=== PATIENT | male | born 1955 | race Caucasian/White ===

== ENCOUNTER → 2023-04-11 08:30 | Outpatient (CLI) | payer OTHER, SELFPAY ==
[2023-04-11 09:16] LABS: Add Manual Diff / Slide Review NO; Basophils Absolute Auto 100 /uL (0-100); Basophils Percent Auto 0.8 % (0-2); Eosinophils Absolute Auto 400 /uL (0-450); Eosinophils Percent Auto 4.7 % (2-4); Hemoglobin 13.8 g/dL (13.5-17.5); Lymphocytes Absolute Auto 1800 /uL (1100-4500); Lymphocytes Percent Auto 21.9 % (25-40); Mean Corpuscular HGB Conc 35.4 % (30-36); Mean Corpuscular Hemoglobin 30.5 PG (26-34); Mean Corpuscular Volume 86.2 fL (80-100); Monocytes Absolute Auto 600 /uL (0-900); Monocytes Percent Auto 7.2 % (3-14); Neutrophils Absolute Auto 5300 /uL (1500-7000); Neutrophils Percent Auto 65.4 % (50-75); Platelet Count 268 X10^3/uL (150-400); Red Blood Cell Count 4.53 X10^6/uL (4.5-5.9); Red Cell Distribution Width 13.2 % (11.6-14.8); White Blood Cell Count 8.2 X10^3/uL (4.5-11.0)
[2023-04-11 09:53] LABS: Alanine Aminotransferase 29 IU/L (<50); Albumin Globulin Ratio 1.4 (1.0-2.8); Alkaline Phosphatase 80 U/L (38-126); Aspartate Aminotransferase 27 IU/L (17-59); BUN Creatinine Ratio 16.8 (6-22); Bilirubin Total 0.6 mg/dL (0.2-1.3); Blood Urea Nitrogen 17 mg/dL (9-20); Carbon Dioxide 27 mmol/L (22-32); Chloride 104 mmol/L (98-107); Cholesterol 196 mg/dL (140-199); Estimated Glomerular Filt Rate > 60 mL/min (>60); Globulin 2.8 g/dL (1.7-4.1); Glucose 101 mg/dL (80-110); HDL Cholesterol 53 mg/dL (40-60); HEMOLYSIS < 15 (0-50); LDL Cholesterol Calculated 97 mg/dL (<100); Potassium 4.3 mmol/L (3.4-5.1); Sodium 138 mmol/L (137-145); Total Protein 6.8 g/dL (6.3-8.2); Triglycerides 229 mg/dL (35-150)
[2023-04-11 10:23] LABS: Prostate Specific Antigen Scrn 0.324 ng/mL (0.1-4.0)
== END ==
PROVIDERS: PCP Family Medicine; Referring Provider Family Medicine; Visit Provider Family Medicine
DX: I10 Essential (primary) hypertension (principal); Z12.5 Encounter for screening for malignant neoplasm of prostate; R30.0 Dysuria; R53.83 Other fatigue; Z13.220 Encounter for screening for lipoid disorders; Z13.29 Encounter for screening for other suspected endocrine disorder
CPT/HCPCS: 36415; 80053; 80061; 84443; 85025; G0103

== ENCOUNTER → 2023-04-15 09:47 | Outpatient (CLI) | payer OTHER, SELFPAY ==
[2023-04-15 10:15] LABS: Appearance Urine UA CLEAR; Bilirubin Urine UA NEGATIVE (NEGATIVE); Color Urine UA YELLOW; Glucose Urine UA NEGATIVE (Negative); Ketones Urine UA NEGATIVE (NEGATIVE); Leukocyte Esterase Urine UA NEGATIVE (NEGATIVE); Nitrite Urine UA NEGATIVE (Negative); Occult Blood Urine UA NEGATIVE (Negative); Protein Urine UA NEGATIVE (Negative); Specific Gravity Urine UA 1.025 (1.000-1.035); Urobilinogen Urine UA 0.2 E.U./dL (0.2); pH Urine UA 5.5 (4.5-8.0)
[2023-04-15 10:22] LABS: Bacteria Urine None Seen; Culture Indicated Urine Cult Not Indicated; RBC Urine None Seen (0-5/HPF); Squamous Epithelial Cell Urine None Seen (0-5/HPF); WBC Urine None Seen (0-5/HPF)
[2023-04-15 10:44] LABS: Creatinine Urine Random 139.4 mg/dL
[2023-04-15 10:48] LABS: Microalbumin Urine Random < 0.6 mg/dL (0-1.6)
[2023-04-16 17:30] LABS: Fecal Immunochemical Test Negative (Negative)
== END ==
PROVIDERS: PCP Family Medicine; Referring Provider Family Medicine; Visit Provider Family Medicine
DX: I10 Essential (primary) hypertension (principal); R30.0 Dysuria; R53.83 Other fatigue; Z13.220 Encounter for screening for lipoid disorders; Z13.29 Encounter for screening for other suspected endocrine disorder; Z12.11 Encounter for screening for malignant neoplasm of colon
CPT/HCPCS: 81001; 82043; 82274; 82570

== ENCOUNTER → 2024-04-07 09:48 | Outpatient (CLI) | payer OTHER, SELFPAY ==
[2024-04-07 10:52] LABS: BUN Creatinine Ratio 17.5 (6-22); Blood Urea Nitrogen 18 mg/dL (9-20); Calcium 9.2 mg/dL (8.4-10.2); Carbon Dioxide 27 mmol/L (22-32); Chloride 107 mmol/L (98-107); Cholesterol 164 mg/dL (140-199); Estimated Glomerular Filt Rate > 60 mL/min (>60); Glucose 97 mg/dL (80-110); HDL Cholesterol 49 mg/dL (40-60); HEMOLYSIS < 15 (0-50); LDL Cholesterol Calculated 89 mg/dL (<100); Potassium 4.5 mmol/L (3.4-5.1); Sodium 140 mmol/L (137-145); Triglycerides 129 mg/dL (35-150)
[2024-04-07 10:56] LABS: High Sensitivity CRP - Cardiac 1.3 mg/L (1.0-3.0)
== END ==
PROVIDERS: PCP Family Medicine; Referring Provider Family Medicine; Visit Provider Family Medicine
DX: E78.1 Pure hyperglyceridemia (principal); I10 Essential (primary) hypertension; R89.9 Unspecified abnormal finding in specimens from other organs, systems and tissues
CPT/HCPCS: 36415; 80048; 80061; 86140

== ENCOUNTER → 2024-04-29 16:30 | Outpatient (CLI) | payer OTHER, SELFPAY ==
--- NOTE | 2024-04-29 16:32 | DI.RAD.S_ITS ---
PROCEDURE: XR HAND RT MIN 3V INDICATIONS: Right hand, pinky injury TECHNIQUE: 4 views of the hand(s) acquired. COMPARISON: None. FINDINGS: Bones: There is a comminuted 5th middle phalangeal fracture with mild displacement. There is intra-articular involvement at the 5th proximal interphalangeal joint. In addition, there is comminuted spiral fracture of the 4th metacarpal shaft neck and head with minimal displacement. There is intra-articular involvement. Carpal bones are normally aligned. No suspicious bony lesions. Soft tissues: No suspicious soft tissue calcifications. IMPRESSION: 1. Comminuted 5th middle phalangeal fracture. 2. Comminuted 4th metacarpal fracture. Dictated by: Brad Bernabe M.D. on 04/29/2024 at 17:59 Approved by: Brad Bernabe M.D. on 04/29/2024 at 18:01
== END ==
PROVIDERS: PCP Family Medicine; Referring Provider Physician Assistant Surgical; Visit Provider Physician Assistant Surgical
DX: S62.626A Displaced fracture of middle phalanx of right little finger, initial encounter for closed fracture (principal); S62.354A Nondisplaced fracture of shaft of fourth metacarpal bone, right hand, initial encounter for closed fracture; X58.XXXA Exposure to other specified factors, initial encounter
CPT/HCPCS: 73130

== ENCOUNTER → 2024-09-04 09:21 | Outpatient (CLI) | payer OTHER, SELFPAY ==
--- NOTE | 2024-09-04 09:23 | DI.MRI.S_ITS ---
PROCEDURE: MR HEAD/BRAIN WO/W CON INDICATIONS: LOCAL RECURRENCE OF MALIGNANT MELANOMA SKIN TECHNIQUE: Noncontrast axial T1 spin echo, axial T2 fast spin echo, sagittal and axial FLAIR, coronal T2 fast spin echo, axial gradient echo, axial diffusion and ADC through the brain. After the administration of contrast, axial and coronal and sagittal 3D VIBE or T1 spin echo with fat saturation through the brain. COMPARISON: None. FINDINGS: Image quality: Excellent. CSF Spaces: Basal cisterns are patent. No extra-axial fluid collections. Ventricles are normal in size and shape. Brain: No midline shift. No intracranial bleeds or masses. Linear enhancement is present within the superior left cerebellum. The brainstem appears normal. Diffusion-weighted images demonstrate no acute infarct. No chronic ischemic insults. Normal intravascular flow voids are present. Minimal periventricular and subcortical white matter hyperintensities are present. Skull and face: Calvarial marrow is normal in signal. Orbits appear normal. Sinuses: Sinuses and mastoids appear clear. IMPRESSION: Linear enhancement within the left superior cerebellum. This appears to be vascular nature and possibly related to a incidental deep venous anomaly. No priors are available for comparison. No definitive appearance of enhancement or abnormal signal to suggest metastatic disease. Dictated by: Carolyn Crisostoom M.D. on 09/05/2024 at 14:37 Approved by: Carolyn Crisostomo M.D. on 09/05/2024 at 14:39
== END ==
PROVIDERS: PCP Family Medicine; Referring Provider Surgery; Visit Provider Surgery
DX: C43.9 Malignant melanoma of skin, unspecified (principal)
CPT/HCPCS: 70553; A9579

== ENCOUNTER 2025-01-12 12:55 | Day surgery (SDC) | payer OTHER, SELFPAY ==
--- NOTE | 2025-01-12 | PATH_ITS ---
[facility] Accession Number: [id number] No. of containers..02 Tissue . 01 Material submitted: . PART A: stomach - ANTRAL PART B: esophagus, E-G Junction - GE JUNCTION . 01 Diagnosis: Part A: ANTRAL : Gastric antral mucosa with no diagnostic alterations. No Helicobacter organisms identified on H/E stain. No intestinal metaplasia, dysplasia, or malignancy identified. . Part B: GE JUNCTION: Squamous mucosa with mild reactive changes suggestive of reflux. Eosinophils are not increased. [facility] 01/15/2025 1737 Local . 01 Electronically signed: . Peter Butler MD, Pathologist NPI- [id number] . 01 Gross description: . Part A: ANTRAL : Received in formalin are 2 fragment(s) of norwood, soft tissue measuring 0.2 x 0.2 x 0.2 cm to 0.3 x 0.3 x 0.3 cm submitted entirely in 1 cassette(s) . Part B: GE JUNCTION: Received in formalin are 2 fragment(s) of norwood, soft tissue measuring 0.2 x 0.2 x 0.2 cm to 0.3 x 0.3 x 0.3 cm submitted entirely in 1 cassette(s) /ANDRES 01/15/2025 1737 Local . 01 Pathologist provided ICD-10: K21.00 . 01 CPT . 592055, 202604 Specimen Comment: A courtesy copy of this report has been sent to [facility] Pathology Performed at: [address] [id number] MD Peter Butler MD Phone: [phone]
[2025-01-12] MEDS: LACTATED RINGERS 1,000 ML 42 ML IV (13:38)
[2025-01-12 13:47] VITALS: BP 159/83; PULSE 83; RESP 14; TEMP 36.3; O2SAT 100
--- NOTE | 2025-01-12 14:08 | PM.HP.IH.1 ---
History of Present Illness History of Present Illness Date Patient Seen: 01/12/25 Time Patient Seen: 14:08 Chief complaint: SDC Narrative: 69-year-old white male has a history of melanoma who gets PET scans and follow-up, which showed elevated SUV at the GE junction. He is also due for colon screening. [facility] Medical History (Updated 01/12/25 @ 14:09 by Koby Alva MD) Colon cancer screening Gastrointestinal tract imaging abnormality Melanoma Hypertension Wears glasses Plantar warts (~1967) Mihir Benson virus infection (~1995) Shingles (~1999) Chicken pox Hearing loss (~2006) Prehypertension (~2006) Melanoma (~2011) Family History Father Hearing loss Mother Hearing loss Sister Hearing loss Grandfather Stroke Grandmother Stroke Grandmother Stroke Social History Smoking Status: Never smoker alcohol intake: current Meds Home Medications and Allergies Home Medications Medication Instructions Recorded Confirmed Type losartan 25 mg tablet (Cozaar) 12.5 mg (1/2 x 25 mg) PO DAILY to 04/06/24 01/12/25 Rx lower blood pressure #90 tabs peg 3350-electrolytes 236 240 ml PO Q10M #4,000 mL 12/20/24 Rx gram-22.74 gram-6.74 gram-5.86 gram solution (Golytely) Allergies Allergy/AdvReac Type Severity Reaction Status Date / Time BIBI Inhibitors Allergy Intermediate Cough Verified 04/29/24 15:45 Review of Systems Review of Systems ROS: Yes All systems reviewed with the patient and are negative except as otherwise documented Exam Vital Signs (past 8 hours): - 01/12/25 13:47 Temperature 97.4 F L Pulse Rate 83 Respiratory Rate 14 Blood Pressure 159/83 H Pulse Oximetry 100 Oxygen Delivery Method Room Air Oxygen Delivery Method Room Air Assessment & Plan Assessment and plan (1) Gastrointestinal tract imaging abnormality: Status: Acute (2) Colon cancer screening: Status: Acute Assessment & Plan narrative: Patient presents for EGD and colonoscopy Risks, benefits, alternatives to EGD and colonoscopy explained, including but not limited to esophageal, gastric or bowel perforation or other serious complication requiring surgery at less than 1 in 5000 EGDs and colonoscopies, abdominal pain, cramping or bleeding and less than 1% of colonoscopies, and the chances that we find a diagnosis that would require further intervention of about 2%. Patient agrees to proceed. Time-Based Coding :: [TOTAL MINUTES] spent with patient and on the chart (including review of chart, obtaining history, exam, reviewing outside data, placing orders, documenting exam and treatment plan, and counseling patient) on [DATE]. [employer] Sales Professional Bilingual Document charge(s): No
--- NOTE | 2025-01-12 14:23 | SUR.OPER ---
[address] [facility]
--- NOTE | 2025-01-12 14:31 | PM.OP.EC ---
Operative Date/Time/Diagnoses Date of procedure: 01/12/25 Time of procedure: 14:31 Pre-op diagnosis: Abnormal PET scan of the GE junction, colon screening Post-op diagnosis: same (Gastritis, esophageal ring, prolapsed internal hemorrhoid) Procedure & Clinicians Study performed: 1. EGD with biopsy 2. Colonoscopy Same procedure as scheduled: Yes Indications: Abnormal PET scan, colon screening Surgeon: Koby Alva Procedure Notes SCOAP/Timeout: Performed Procedure in detail: Time-out was performed. Mac was induced. Patient was placed in left lateral decubitus position. Bite block was placed. Gastroscope was inserted through the bite block into the 2nd portion of the duodenal. Of the duodenal appeared normal. Had mild antral gastritis. Forceps biopsies were obtained. Retroflexed view showed a small, 3 cm hiatal hernia with a distal esophageal ring. Biopsies were taken of the GE junction of the distal esophageal ring that was noted proximally 40 cm from the incisors. The remainder of the esophagus was normal, no masses or concerning lesions. The gastroscope was removed and attention was turned to the colonoscopy. The perineum was inspected without any gross abnormality. Lubricated pediatric colonoscope was inserted and advanced to the cecum. The terminal ileum was intubated. The colonoscope was withdrawn slowly inspecting the circumference of the colon. Very small polyps may have been missed, prep quality was adequate. Retroflexed view of the rectum showed small, non prolapsed nonbleeding internal hemorrhoids. The scope was withdrawn the patient was taken to PACU in good condition. Scope withdrawal time: 6 Sedation minutes: 15 Findings: gastritis (3 cm esophageal ring at the GE junction) and internal hemorrhoids (Prolapsed, nonbleeding grade 4 internal hemorrhoids) Specimen(s): other (1. Antral biopsy 2. GE junction biopsy) Post-procedure Recommendations: Colonscopy in 10 years and Start medication(s) (esomeprazole) Follow up: as needed Disposition: PACU
[2025-01-12 14:33] VITALS: BP 117/84; PULSE 88; RESP 17; TEMP 36.3; O2SAT 92
[2025-01-12 14:39] VITALS: BP 104/75; PULSE 89; RESP 18; O2SAT 99
[2025-01-12 14:43] VITALS: BP 136/80; PULSE 83; RESP 12; TEMP 36.3; O2SAT 99
[2025-01-12 14:49] VITALS: BP 139/90; PULSE 82; RESP 14; O2SAT 99
== END 2025-01-12 15:06 | disposition home or self-care (01) ==
PROVIDERS: PCP Family Medicine; Referring Provider Surgery; Visit Provider Surgery
PROC: 0DJ08ZZ Inspection of Upper Intestinal Tract, Via Natural or Artificial Opening Endoscopic (ICD-10-PCS; CPT 43239; principal; 2025-01-12 14:00)
PROC: 0DJD8ZZ Inspection of Lower Intestinal Tract, Via Natural or Artificial Opening Endoscopic (ICD-10-PCS; CPT 45378; 2025-01-12 14:00)
DX: Z12.11 Encounter for screening for malignant neoplasm of colon (principal); K29.70 Gastritis, unspecified, without bleeding; K44.9 Diaphragmatic hernia without obstruction or gangrene; K64.3 Fourth degree hemorrhoids; K22.2 Esophageal obstruction
CPT/HCPCS: 43239; G0121; J2704

== ENCOUNTER → 2025-04-21 09:17 | Outpatient (CLI) | payer OTHER, SELFPAY ==
[2025-04-21 10:19] LABS: Cholesterol 164 mg/dL (140-199); HDL Cholesterol 43 mg/dL (40-60); LDL Cholesterol Calculated 73 mg/dL (<100); Triglycerides 240 mg/dL (35-150)
[2025-04-21 10:36] LABS: Vitamin D 25 Hydroxy (D3) 22.3 ng/mL (30.0-100.0)
[2025-04-21 10:52] LABS: Prostate Specific Antigen Scrn 0.349 ng/mL (0.1-4.0)
[2025-04-22 03:36] LABS: CRP, High Sensitivity 1.13 mg/L (0.00-3.00)
== END ==
PROVIDERS: PCP Family Medicine; Referring Provider Family Medicine; Visit Provider Family Medicine
DX: Z00.00 Encounter for general adult medical examination without abnormal findings (principal); E78.1 Pure hyperglyceridemia; Z12.5 Encounter for screening for malignant neoplasm of prostate; E55.9 Vitamin D deficiency, unspecified; C43.9 Malignant melanoma of skin, unspecified; I10 Essential (primary) hypertension
CPT/HCPCS: 36415; 80061; 82306; 86140; G0103